=== PATIENT | female | born 1990 | race American Indian/Alaskan Native ===

== ENCOUNTER 2017-02-26 20:39 | Outpatient (CLI) | payer OTHER ==
[2017-02-26] MEDS ORDERED: ATROPINE 0.1% (CARDIAC) ONE (23:58)
[2017-02-27 02:45] LABS: Basophils % (Auto) 0.2 % (0.0-1.8); Eosinophils # (Auto) 0.1 K/mm3 (0.0-0.4); Eosinophils % (Auto) 0.8 % (0.0-4.3); Hematocrit 24.3 % (30.3-42.9); Hemoglobin 7.8 gm/dl (10.1-14.3); Lymphocytes # (Auto) 1.2 K/mm3 (1.2-5.4); Lymphocytes % (Auto) 13.2 % (13.4-35.0); Mean Corpuscular HGB Conc 32 % (30-34); Mean Corpuscular Hemoglobin 25 pg (28-32); Mean Corpuscular Volume 76 fl (79-97); Monocytes # (Auto) 0.8 K/mm3 (0.0-0.8); Monocytes % (Auto) 8.3 % (0.0-7.3); Platelet Count 256 K/mm3 (140-440); Red Blood Count 3.21 M/mm3 (3.65-5.03); Red Cell Distribution Width 17.4 % (13.2-15.2)
--- NOTE | 2017-02-27 04:07 | Emergency Department Report ---
Minor Respiratory - HPI Chief Complaint: Pain General Stated Complaint: BODYACHES; 30WKS GEST Time Seen by Provider: 02/27/17 01:58 Duration: 1 Day Pain Location: Other (generalized muscle pain) Severity: moderate Minor Respiratory: Yes Rhinorrhea, Yes Sore Throat, Yes Able to Tolerate Fluids , Yes Cough, No Ear Pain, No Sick Contacts, No Hemoptysis, No Chest Pain, No Shortness of Breath, No Fever Other History: This is a 27 y.o. 30 weeks gestation female presents with generalized muscle aches, clear rhinorrhea, and cough x 1 day. She had influenza and tdap vaccine on last visit with [facility]. She is home on bedrest and no sick contacts. She went outside yesterday and the air was cutting her breath and woke up this morning aching everywhere. Currently treated for iron anemia with ferrous sulfate 325 mg po daily. She haven't taken anything because she was afraid it would hurt the babies. ED Review of Systems ROS: Stated complaint: BODYACHES; 30WKS GEST Other details as noted in HPI Constitutional: see HPI, chills, fever, malaise ENT: throat pain, congestion. denies: ear pain Respiratory: see HPI, cough. denies: orthopnea, shortness of breath, SOB with exertion, SOB at rest Cardiovascular: as per HPI. denies: chest pain, palpitations, dyspnea on exertion, orthopnea, edema, syncope, paroxysmal nocturnal dyspnea Gastrointestinal: denies: abdominal pain, nausea, diarrhea Musculoskeletal: myalgia (generalized muscle aches) Neurological: denies: headache, weakness, paresthesias ED Past Medical Hx - Past Medical History Previous Medical History?: No - Surgical History Additional Surgical History: T&A in childhood - Social History Smoking Status: Never Smoker Substance Use Type: None - Medications Home Medications: Home Medications Medication Instructions Recorded Confirmed Last Taken Type Magnesium Oxide [Mag-Ox] 400 mg PO QDAY 14 Days #14 tablet 02/27/17 Unknown Rx Oseltamivir [Tamiflu] 75 mg PO BID 5 Days #10 capsule 02/27/17 Unknown Rx Minor Respiratory Exam - Exam General: Vital signs noted. No distress. Alert and acting appropriately. HEENT: Yes Pharyngeal Erythema, Yes Moist Mucous Membranes, Yes Rhinorrhea ( yellow, turbinates swollen and red ), No Pharyngeal Exudates, No Conjuctival Injection, No Frontal Tenderness, No Maxillary Tenderness Ear: Neither TM Bulge, Neither TM Erythema, Neither EAC Pain, Neither EAC Discharge Neck: Yes Supple, No Adenopathy Lungs: Yes Good Air Exchange, Yes Cough, No Wheezes, No Ronchi, No Stridor, No Labored Respirations, No Retractions, No Use of Accessory Muscles, No Other Abnormal Lung Sounds Heart: Yes Regular, No Murmur Abdomen: Yes Normal Bowel Sounds, No Tenderness, No Peritoneal Signs Skin: No Rash, No Edema Neurologic: Alert and oriented, no deficits. Musculoskeletal: Unremarkable. ED Course Vital Signs 02/26/17 21:10 Temperature 98.3 F Pulse Rate 126 H Respiratory 16 Rate Blood Pressure 117/64 O2 Sat by Pulse 98 Oximetry Vital Signs 02/26/17 02/27/17 02/27/17 21:10 04:38 07:20 Temperature 98.3 F Pulse Rate 126 H 105 H Respiratory 16 17 17 Rate Blood Pressure 117/64 114/69 Blood Pressure 100/55 [Left] O2 Sat by Pulse 98 99 Oximetry 02/27/17 07:33 Temperature 98.1 F Pulse Rate 102 H Respiratory 18 Rate Blood Pressure Blood Pressure 102/63 [Left] O2 Sat by Pulse 98 Oximetry ED Medical Decision Making - Lab Data Result diagrams: 02/27/17 02:28 02/27/17 05:11 - EKG Data -: EKG Interpreted by Me Rate: tachycardia - Medical Decision Making This is a 27 y.o. Female presents with generalized body aches and UR symptoms x 1 day. She is 30 weeks gestation. A1. Established OB patient at [facility], but she doesn't have a specific physician there. Miss documentation of given atropine and BI-PAP via EMS. Patient states she didn't receive IV line or BI- PAP. Negative rapid influenza, H/H 7.8 & 24.3, treated with ferrous sulfate 325 mg for iron anemia. HR remains 102-120, F 98.1. Mg 1.6 given magnisium oxide 400 mg po once. Treated for viral syndrome with tamiflu. monitor HRs 150- 158 both babies. Report given to Dr. Alvarez and Flavio. Consulted [facility], line placed and transferred to OB triage. Critical care attestation.: If time is entered above; I have spent that time in minutes in the direct care of this critically ill patient, excluding procedure time. ED Disposition Clinical Impression: Viral syndrome Disposition: DC-01 TO HOME OR SELFCARE Is pt being admited?: No Does the pt Need Aspirin: No Condition: Stable Instructions: Viral Syndrome (ED) Additional Instructions: Follow up with [facility] in 48 hours. Prescriptions: Magnesium Oxide [Mag-Ox] 400 mg PO QDAY 14 Days #14 tablet Oseltamivir [Tamiflu] 75 mg PO BID 5 Days #10 capsule Referrals: NIKUNJ RIOS MD [Primary Care Provider] - 3-5 Days BRYANT SWAIN MD [Referring] - 3-5 Days Time of Disposition: 08:05 Print Language: [place]
[2017-02-27 06:06] LABS: Alanine Aminotransferase 6 units/L (7-56); Albumin 2.8 g/dL (3.9-5); BUN/Creatinine Ratio 13; Blood Urea Nitrogen 5 mg/dL (7-17); Calcium 8.2 mg/dL (8.4-10.2); Hemolysis Index 0
[2017-02-27 09:24] VITALS: BP 101/56
[2017-02-27] MEDS ORDERED: MAG-OX PO SCH (10:00)
[2017-02-27] MEDS ORDERED: TAMIFLU PO SCH (10:00)
== END 2017-02-27 10:45 | disposition home or self-care (01) ==
LOC: ED 20:39 → TRG 20:39
PROVIDERS: ATTEND Obstetrics & Gynecology
DX: O98.513 Other viral diseases complicating pregnancy, third trimester (principal); B34.9 Viral infection, unspecified; Z3A.30 30 weeks gestation of pregnancy
CPT/HCPCS: 36415; 59025; 80053; 83735; 84100; 85025; 87400; 93005; 93010; 99283; J0461